=== PATIENT | male | born 1975 | race Caucasian/White ===

== ENCOUNTER 2021-04-14 16:43 | Emergency (ER) | payer BC, SELFPAY ==
--- NOTE | 2021-04-14 16:46 | ED.EAR ---
HPI - Ear Problem General Chief complaint: Ear Stated complaint: Ear Pain Time Seen by Provider: 04/14/21 16:46 Source: patient and RN notes reviewed History of Present Illness HPI Narrative: Patient is a 45-year-old male who presents the urgent care with his spouse with complaints of right ear pain. Patient states that he now has some muffled hearing and a little bit of swelling. Patient states that it started on Tuesday and he has been consistently irrigating his ear with an elephant ear, water, peroxide, [id number] drops, oil and placing a cotton ball in the ear. 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 Denies of any drainage from the ear. Denies of any fever, chills, nausea, vomiting. Is of any upper respiratory complaints. No other acute complaints. No acute distress noted. Patient and spouse aware of the plan of care. Some parts of this dictation were generated by voice recognition software and may contain typographical and/or grammatical inaccuracies. Related Data Allergies Allergy/AdvReac Type Severity Reaction Status Date / Time No Known Allergies Allergy Verified 06/07/19 11:21 Review of Systems Review of Systems: CONSTITUTIONAL: Denies fever, chills, or sweats. EYES: Denies visual changes, redness, or discharge. ENT: Denies rhinorrhea, congestion, sore throat. Reports of right otalgia CARDIOVASCULAR: Denies chest pain, palpitations, or edema. RESPIRATORY: Denies cough or dyspnea. GASTROINTESTINAL: Denies abdominal pain, nausea, vomiting, or diarrhea. GENITOURINARY: Denies dysuria or hematuria. SKIN: Denies rash or itching. MUSCULOSKELETAL: Denies back pain, joint pain, or myalgia. NEUROLOGIC: Denies headache, numbness, or weakness. All other systems reviewed are negative, except as documented in HPI. PMFSH Comments At the time of my signature, I reviewed and agree with the nursing past medical, surgical, social, and family history. There is no relevant family history pertinent to the patient complaint. Exam Narrative: GENERAL: This is a well-nourished, well-developed patient, in no apparent distress. HEAD: normocephalic, atraumatic. EYES: PERRL. Sclera clear/white. Vision is grossly intact. EARS: External ears normal, left auditory canals clear and without drainage, right auditory canal erythemic and slightly edematous, right TM injected/cloudy. left TM normal without perforation. Hearing grossly intact. NOSE: External nose normal with no obvious nasal discharge, nares without redness, no rhinorrhea. THROAT: Mucous membranes moist NECK: Neck supple CARDIOVASCULAR: Regular rate and rhythm without murmurs, gallops, or rubs. RESPIRATORY: Clear to auscultation. Breath sounds equal bilaterally. No wheezes, rales, or rhonchi. SKIN: warm, intact with no suspicious lesions or rash, good texture and turgor. NEURO: awake, alert, and oriented to person, place and time. There were no obvious focal neurologic abnormalities. EXTREMITIES: No clubbing, cyanosis, or edema. Course Vital Signs Vital signs: Vital Signs Temperature 98.5 F 04/14/21 16:50 Pulse Rate 86 04/14/21 16:50 Respiratory Rate 16 04/14/21 16:50 Blood Pressure 142/93 H 04/14/21 16:50 Pulse Oximetry 100 04/14/21 16:50 Temperature 98.5 F 04/14/21 16:53 Pulse Rate 86 04/14/21 16:53 Respiratory Rate 16 04/14/21 16:53 Blood Pressure 142/93 H 04/14/21 16:53 Pulse Oximetry 100 04/14/21 16:53 Reviewed-patient is informed that they may have pre-hypertension or hypertension based on a blood pressure reading in the department. I recommend the patient call the primary care provider listed on their discharge instructions or a physician of their choice this week to arrange follow-up for further evaluation of possible pre-hypertension or hypertension. Medical Decision Making MDM Narrative Medical decision making narrative: Advised the patient to stop using [id number] drops, arnold
[2021-04-14 16:50] VITALS: BP 142/93; PULSE 86; RESP 16; TEMP 36.9; O2SAT 100
[2021-04-14 16:53] VITALS: BP 142/93; PULSE 86; RESP 16; TEMP 36.9; O2SAT 100
== END 2021-04-14 17:05 | disposition home or self-care (01) ==
PROVIDERS: Emergency Provider Nurse Practitioner Family; PCP Emergency Medicine
DX: H60.91 Unspecified otitis externa, right ear (principal); H66.91 Otitis media, unspecified, right ear
CPT/HCPCS: 99213; G0463

== ENCOUNTER 2021-05-20 10:47 | Outpatient (CLI) | payer BC, SELFPAY | END 2021-05-20 10:48 | disposition home or self-care (01) | LOC: ANHAUDIO 10:48 | PROVIDERS: PCP Emergency Medicine; Visit Provider Otolaryngology | DX: H65.90 Unspecified nonsuppurative otitis media, unspecified ear (principal) | CPT/HCPCS: 92557; 92567 ==

== ENCOUNTER 2021-10-04 10:34 | Emergency (ER) | payer BC, SELFPAY ==
--- NOTE | ~2021-10-04 | XR_ITS ---
EXAMINATION: XR chest 2V DATE: 10/04/2021 11:38 INDICATION: Cough and congestion TECHNIQUE: PA and lateral views of the chest are obtained. COMPARISON: None available FINDINGS: There are patchy airspace opacities of the mid and lower lung zones. There is no pleural ef fusion or pneumothorax. The cardiomediastinal silhouette is normal. There is mild thoracic spondylosi s. IMPRESSION: 1. Patchy airspace opacities of the mid and lower lung zones, likely pneumonia. Reviewed, dictated and finalized at location A.
[2021-10-04 10:56] VITALS: BP 150/93; PULSE 84; RESP 24; TEMP 36.9; O2SAT 97
--- NOTE | 2021-10-04 11:26 | ED.GENADULT ---
HPI - General Adult General Chief complaint: Upper Respiratory Infection Stated complaint: hot and cold,cough Source: patient Mode of arrival: ambulatory Limitations: no limitations History of Present Illness HPI narrative: Patient presents for evaluation of sick symptoms for the last 2 and half weeks. Symptoms include fever, chills, sore throat, productive cough of clear sputum, clear rhinorrhea. No nausea, vomiting, diarrhea, shortness of breath. He called the telemedicine provider 2 days ago and received a prescription for Augmentin and an antitussive. He states that the antitussive has been effective. His daughter recently had similar symptoms. He has received COVID vaccination. He is not using any OTC remedies. He does not smoke. No additional complaints or concerns. Related Data Home Medications Medication Instructions Recorded Confirmed benzonatate mg PO 10/04/21 Allergies Allergy/AdvReac Type Severity Reaction Status Date / Time No Known Allergies Allergy Verified 10/04/21 10:56 Review of Systems Review of Systems: CONSTITUTIONAL: Reports fever and chills EYES: Denies visual changes, redness, or discharge. ENT: Reports rhinorrhea and sore throat CARDIOVASCULAR: Reports right sided pleuritic chest pain. Denies chest pain otherwise. Denies\ palpitations, or edema. RESPIRATORY: Reports productive cough of clear sputum. Denies SOB GASTROINTESTINAL: Denies abdominal pain, nausea, vomiting, or diarrhea. GENITOURINARY: Denies dysuria or hematuria. SKIN: Denies rash or itching. MUSCULOSKELETAL: Denies back pain, joint pain, or myalgia. NEUROLOGIC: Denies headache, numbness, dizziness, or weakness. PSYCHIATRIC: Denies anxiety or depression. [facility] Past Medical History Medical History (Updated 10/04/21 @ 11:56 by MONISHA Noble, SID) No pertinent past medical history Surgical History Surgical History No pertinent past surgical history Family History Family History Mother Heart disease Other Asthma Depression Thyroid disorder Social History Social History Smoking status: Never smoker Alcohol intake: never Substance use: never Living arrangements: with family Gender identity (if verbalized by the patient): Male Sexual Orientation (if Verbalized by the Patient): Straight or Heterosexual Spiritual care concerns: No Exam Narrative: GENERAL: Well-appearing, well-nourished, and in no acute distress. HEAD: Normocephalic, atraumatic. EYES: PERRLA and EOMI. ENT: Nares clear, no rhinorrhea or epistaxis. Mucous membranes moist. Oropharynx without tonsillar hypertrophy exudate or other lesions. Bilateral TMs pearly ty nonbulging NECK: Supple. No adenopathy or masses. No carotid bruits or JVD CHEST: Cough present on exam. Clear to auscultation. No respiratory distress. No wheezes rales or rhonchi HEART: Regular rate and rhythm. No murmur heard. Normal peripheral pulses. ABDOMEN: Soft, nontender, nondistended, normal active bowel sounds. EXTREMITIES: Normal range of motion. No edema. SKIN: Warm, dry, no rash. NEURO: No focal deficits. Alert and oriented x3. PSYCH: Normal mood and affect. Course Course Emergency Course: This is a 46-year-old male who present with complaints of respiratory symptoms. He is currently on Augmentin. Influenza and COVID were negative. Chest x-ray consistent with community-acquired pneumonia. Add azithromycin. Continue Augmentin Follow-up outpatient for further evaluation and treatment and go to ER for worsening symptoms. Pt in agreement with plan of care Level of Care: Express Care Visit Vital Signs Vital signs: Vital Signs Temperature 36.9 C 10/04/21 10:56 Pulse Rate 84 10/04/21 10:56 Respiratory Rate 24 H 10/04/21 10:56 Blood Pressure 150/93 H 05
== END 2021-10-04 12:14 | disposition home or self-care (01) ==
PROVIDERS: Emergency Provider Nurse Practitioner; PCP Emergency Medicine
DX: J18.9 Pneumonia, unspecified organism (principal); Z20.822 Contact with and (suspected) exposure to COVID-19
CPT/HCPCS: 71046; 87426; 87804; 99213; C9803; G0463

== ENCOUNTER 2022-07-30 01:12 | Day surgery (SDC) | payer BC, SELFPAY ==
[2022-07-16 12:30] VITALS: BMI 31.6
[2022-07-30 06:20] VITALS: BP 150/104; PULSE 78; RESP 18; TEMP 36; O2SAT 100; BMI 34.0
[2022-07-30] MEDS: LACTATED RINGERS 1,000 ML 150 ML IV CONT (06:47)
--- NOTE | 2022-07-30 07:24 | P.PNAN_ITS ---
Anes - Initial Pre Proc Eval Procedure: Operation Date: 07/30/22 07:30 Proposed Procedures p Screening Colonoscopy - Dustin Quevedo MD Date/Time: 07/30/22 07:24 Surgeon: Dustin Quevedo MD Pre Op Diagnosis: neoplasm screening Patient Data Age: 47 Gender: M Height: 1.85 m Weight: 117.2 kg Last Vital Signs Temp 96.8 F L 07/30/22 06:20 Pulse 78 07/30/22 06:20 Resp 18 07/30/22 06:20 BP 150/104 H 07/30/22 06:20 Pulse Ox 100 07/30/22 06:20 O2 Del Method Room Air 07/30/22 06:20 Allergies Allergy/AdvReac Type Severity Reaction Status Date / Time No Known Allergies Allergy Verified 07/30/22 06:32 Home Medications Medication Instructions Recorded Confirmed Type biotin 5,000 mcg-lutein 10 mg 1 tablet PO DAILY 07/16/22 07/30/22 History tablet (Biotin Plus) meloxicam 15 mg tablet 15 mg PO DAILY 07/16/22 07/30/22 History Patient hx anesthesia problems: none Family hx anesthesia problems: none Results Review: All pre-operative results and documents have been reviewed as part of the pre- operative evaluation. [facility] Past Medical History Medical History (Updated 10/05/21 @ 00:00 by Felicia Alicia) No pertinent past medical history Surgical History Surgical History No pertinent past surgical history Family History Family History Mother Heart disease Other Asthma Depression Thyroid disorder Social History Social History Smoking status: Never smoker Alcohol intake: never Substance use: never Living arrangements: with family Gender identity (if verbalized by the patient): Male Sexual Orientation (if Verbalized by the Patient): Straight or Heterosexual Spiritual care concerns: No Anes - Eval Final PreProcedure Day of Procedure 07/30/22 07:24 Patient weight: obese Heart: regular rate and rhythm Lungs: clear to auscultation Airway: Mallampati scale class II Neurological: alert and oriented Last oral intake: >/= 8 hours ASA classification: II Emergent: no Anesthetic plan: proceed Anesthesia type and monitoring: general GIVS and standard monitoring Results Review: All pre-operative results and documents have been reviewed as part of the pre- operative evaluation. Informed Consent: The patient's anesthetic plan and its attendant risks and benefits were discussed with the patient/family/POA. Questions were solicited and answers provided to the satisfaction of the patient/family/POA.
--- NOTE | 2022-07-30 07:31 | PM.HPGS ---
History of Present Illness History of Present Illness Consent: Risks, benefits, and alternatives have been discussed and questions answered. Patient agrees to proceed with procedure. Chief complaint: neoplasm screening Narrative: Patel Glover is a 47 year old male here for first screening colonoscopy Review of Systems Constitutional: Constitutional: Denies headache(s) and Denies weakness Eyes: Eyes: Denies blurry vision ENT: Reports Normal hearing present, Denies headache(s) and Denies neck pain Cardiovascular: Cardiovascular: Denies chest pain and Denies dyspnea Respiratory: Respiratory: Denies dyspnea Gastrointestinal: Gastrointestinal: Reports no additional gastrointestinal complaints Genitourinary: Genitourinary: Denies dysuria Musculoskeletal: Musculoskeletal: Denies neck pain Integumentary/Breasts: Skin/Breast: Denies dry skin Neurologic: Reports Normal hearing present, Denies headache(s) and Denies weakness Psychiatric: Psychiatric: Denies anxiety Endocrine: Endocrine: Denies change in body appearance Hematologic/Lymphatic: Hematologic/Lymphatic: Denies easy bleeding Allergic/Immunologic: Allergic/Immunologic: Denies urticaria [facility] Past Medical History Medical History (Updated 07/30/22 @ 07:32 by Dustin Quevedo MD) Colon cancer screening No pertinent past medical history Surgical History Surgical History No pertinent past surgical history Family History Family History Mother Heart disease Other Asthma Depression Thyroid disorder Social History Social History Smoking status: Never smoker Alcohol intake: never Substance use: never Living arrangements: with family Gender identity (if verbalized by the patient): Male Sexual Orientation (if Verbalized by the Patient): Straight or Heterosexual Spiritual care concerns: No Meds Home Medications and Allergies Home Medications Medication Instructions Recorded Confirmed Type biotin 5,000 mcg-lutein 10 mg 1 tablet PO DAILY 07/16/22 07/30/22 History tablet (Biotin Plus) meloxicam 15 mg tablet 15 mg PO DAILY 07/16/22 07/30/22 History Allergies Allergy/AdvReac Type Severity Reaction Status Date / Time No Known Allergies Allergy Verified 07/30/22 06:32 Vital Signs Vital Signs - 24 hr 07/30/22 06:20 Temperature 96.8 F L Pulse Rate 78 Respiratory Rate 18 Blood Pressure 150/104 H Pulse Oximetry 100 Oxygen Delivery Room Air Exam Const: General: comfortable and no acute distress HENMT: Face/Nose/Sinus: Normal nares present Eyes: General: appearance normal, both eyes and all related structures Neck: Neck: no JVD Resp: Auscultation: clear to auscultation bilaterally Cardio: Rate: regular rate Rhythm: regular rhythm GI: Inspection: non-distended GI Palp: Yes Soft to palpation Skin: General skin exam: normal color Neuro: General: gait normal Speech: normal speech Extrem: General: normal to inspection Psych: Mental Status: mental status grossly normal Assessment and Plan Assessment and plan (1) Colon cancer screening: Code(s): Z12.11 - Encounter for screening for malignant neoplasm of colon Status: Acute Assessment and Plan: colonoscopy
[2022-07-30 07:46] VITALS: BP 100/65; PULSE 66; RESP 18; O2SAT 97
[2022-07-30 07:56] VITALS: BP 124/88; PULSE 72; RESP 18; O2SAT 98
[2022-07-30 08:06] VITALS: BP 123/73; PULSE 60; RESP 18; O2SAT 98
== END 2022-07-30 08:16 | disposition home or self-care (01) ==
PROVIDERS: PCP Emergency Medicine; Visit Provider Internal Medicine Gastroenterology
PROC: 0DJD8ZZ Inspection of Lower Intestinal Tract, Via Natural or Artificial Opening Endoscopic (ICD-10-PCS; CPT 45378; principal; 2022-07-30 07:30)
DX: Z12.11 Encounter for screening for malignant neoplasm of colon (principal); E66.9 Obesity, unspecified; Z68.34 Body mass index [BMI] 34.0-34.9, adult
CPT/HCPCS: 45378; J2704; J7120

== ENCOUNTER 2024-08-14 08:00 | Emergency (ER) | payer BC, SELFPAY ==
--- NOTE | 2024-08-14 08:04 | ED.EAR ---
HPI - Ear Problem General Chief complaint: Ear Stated complaint: EARACHE Source: patient and RN notes reviewed Mode of arrival: ambulatory Limitations: no limitations History of Present Illness HPI Narrative: Patient is a 49-year-old male who presents to the [facility] with complaints of bilateral ear pain, right greater than left. He states that the right ear pain has been ongoing for months. He reports muffled hearing in that ear. He states that he is starting to have muffled hearing in the left ear and pain to the left ear over the last few days. He denies ear drainage. Denies nasal congestion or cough. Denies fever. Related Data Home Medications ?Medication ?Instructions ?Recorded ?Confirmed ?Last Taken ?Type biotin 5,000 mcg-lutein 10 mg 1 tablet PO DAILY 07/16/22 07/30/22 Unknown History tablet (Biotin Plus) meloxicam 15 mg tablet 15 mg PO DAILY 07/16/22 07/30/22 Unknown History Allergies Allergy/AdvReac Type Severity Reaction Status Date / Time No Known Allergies Allergy Verified 07/30/22 06:32 Review of Systems Review of Systems: CONSTITUTIONAL: Denies fever, chills, or sweats. EYES: Denies visual changes, redness, or discharge. ENT: Reports otalgia but denies sore throat CARDIOVASCULAR: Denies chest pain, palpitations, or edema. RESPIRATORY: Denies cough or dyspnea. GASTROINTESTINAL: Denies abdominal pain, nausea, vomiting, or diarrhea. GENITOURINARY: Denies dysuria or hematuria. SKIN: Denies rash or itching. MUSCULOSKELETAL: Denies back pain, joint pain, or myalgia. NEUROLOGIC: Denies headache, numbness, or weakness. Pertinent positives per HPI. [facility] Past Medical History Medical History Colon cancer screening No pertinent past medical history Surgical History Surgical History No pertinent past surgical history Family History Family History Mother Heart disease Other Asthma Depression Thyroid disorder Social History Social History Smoking status: Never smoker Alcohol intake: never Substance use: never Living arrangements: with family Gender identity (if verbalized by the patient): Male Sexual Orientation (if Verbalized by the Patient): Straight or Heterosexual Spiritual care concerns: No Comments At the time of my signature, I reviewed and agree with the nursing past medical, surgical, social, and family history. There is no relevant family history pertinent to the patient complaint. Exam Narrative: GENERAL: This is a well-nourished, well-developed patient, in no apparent distress. HEAD: normocephalic, atraumatic. EYES: Sclera clear/white. Vision is grossly intact. EARS: External ears normal. Canal normal. Bilateral TMs opaque. NOSE: External nose normal with no obvious nasal discharge, nares without redness, no rhinorrhea. THROAT: Mucous membranes moist, posterior pharynx clear. NECK: Neck supple, non-tender without lymphadenopathy, masses or thyromegaly. CARDIOVASCULAR: Regular rate and rhythm without murmurs, gallops, or rubs. RESPIRATORY: Clear to auscultation. Breath sounds equal bilaterally. No wheezes, rales, or rhonchi. GASTROINTESTINAL: Abdomen soft, non-tender, nondistended. Bowel sounds are active. No hepato-splenomegaly, or palpable masses. No guarding. SKIN: warm, intact with no suspicious lesions or rash, good texture and turgor. NEURO: awake, alert, and oriented to person, place and time. There were no obvious focal neurologic abnormalities. Course Course Level of Care: Express Care Visit Vital Signs Vital signs: Vital Signs Temperature 98 F 08/14/24 08:12 Pulse Rate 66 08/14/24 08:12 Respiratory Rate 16 08/14/24 08:12 Blood Pressure 161/97 H 08/14/24 08:12 Pulse Oximetry 98 08/14/24 08:12 Temperature 98 F 08/14/24 08:12 Pulse Rate 66 08/14/24 08:12 Respiratory Rate 16 08/14/24 08:12 Blood Pressure 161/97 H 08/14/24 08:12 Pulse Oximetry 98 08/14/24 08:12 Reviewed Medical Decision Making MDM Narrative Medical decision making narrative: Take antibiotics as directed. May given ibuprofen and/or Tylenol as needed for pain and/or fever. Follow up with primary care provider in 7-10 days to have ear rechecked. Differential Diagnosis Differential Diagnosis: otitis media, otitis externa, cerumen impaction Vital Signs Vital Signs: Vital Signs Temperature 98 F 08/14/24 08:12 Pulse Rate 66 08/14/24 08:12 Respiratory Rate 16 08/14/24 08:12 Blood Pressure 161/97 H 08/14/24 08:12 Pulse Oximetry 98 08/14/24 08:12 Temperature 98 F 08/14/24 08:12 Pulse Rate 66 08/14/24 08:12 Respiratory Rate 16 08/14/24 08:12 Blood Pressure 161/97 H 08/14/24 08:12 Pulse Oximetry 98 08/14/24 08:12 Critical Care Time Critical Care Time Critical Care Time: No Discharge Plan Discharge Clinical Impression: Acute bilateral otitis media Patient Disposition: Home, Self-Care Condition: Stable Instructions: Antibiotic Form, Ear Infection (ED) Additional Instructions: Take antibiotics as directed. May given ibuprofen and/or Tylenol as needed for pain and/or fever. Follow up with primary care provider in 7-10 days to have ear rechecked. Patient Language: Tamazight Prescriptions: New amoxicillin-pot clavulanate 875-125 mg tablet 1 tablet PO Q12H 10 Days Qty: 20 0RF No Action meloxicam 15 mg tablet 15 mg PO DAILY Biotin Plus 5,000 mcg- 10 mg Tablet 1 tablet PO DAILY Follow-up/Referrals: Yrn Moreno MD [Primary Care Provider] - Time of Disposition: 08:
[2024-08-14 08:12] VITALS: BP 161/97; PULSE 66; RESP 16; TEMP 36.6; O2SAT 98
== END 2024-08-14 08:21 | disposition home or self-care (01) ==
PROVIDERS: Emergency Provider Nurse Practitioner; PCP Emergency Medicine
DX: H66.93 Otitis media, unspecified, bilateral (principal)
CPT/HCPCS: 99213; G0463